=== PATIENT | male | born 1995 | race Caucasian/White ===

== ENCOUNTER 2024-05-06 15:11 | Emergency (ER) | payer SELFPAY ==
[~2024-05-06] VITALS: Ht 167.6 cm; Wt 65.8 kg
[2024-05-06 15:47] VITALS: PULSE 97; RESP 19; TEMP 99.9
[2024-05-06 16:33] LABS: INFLUENZAE A&B ANTIGEN (RAPID) NEGATIVE (NEGATIVE); STREPTOCOCCUS GRP A ANTIGEN NEGATIVE (NEGATIVE)
[2024-05-06 17:26] VITALS: BP 131/71; PULSE 98; RESP 17; TEMP 99.2; O2SAT 100
== END 2024-05-06 17:27 | disposition home or self-care (01) ==
LOC: ER 15:26
DX: R50.9 Fever, unspecified (principal); J02.8 Acute pharyngitis due to other specified organisms; Z11.52 Encounter for screening for COVID-19
CPT/HCPCS: 83518; 87070; 87400; 99282; U0002